=== PATIENT | female | born 1980 | race African-American/Black ===

== ENCOUNTER → 2016-09-29 | Outpatient (CLI) | payer MEDICAID ==
[~2016-09-29] MED LIST: CALNTAB; IBUP-232 PO; OXYC1TAB63 PO; PERI8.6T PO; SENN1TAB PO; TETA1INJ6 IM; TYLE325T PO; ZOFR4TAB PO; ZOFR4TAB3 SL
== END ==
LOC: HPND 09:54
PROVIDERS: ATTEND Family Medicine
DX: O09.522 Supervision of elderly multigravida, second trimester (principal); O26.842 Uterine size-date discrepancy, second trimester
CPT/HCPCS: 76811

== ENCOUNTER → 2016-11-03 | Outpatient (CLI) | payer MEDICAID ==
[~2016-11-03] MED LIST changes: -ZOFR4TAB PO
== END ==
LOC: HPND 13:04
PROVIDERS: ATTEND Family Medicine
DX: O36.5922 Maternal care for other known or suspected poor fetal growth, second trimester, fetus 2 (principal); O34.12 Maternal care for benign tumor of corpus uteri, second trimester; O09.522 Supervision of elderly multigravida, second trimester
CPT/HCPCS: 76816; 76818; 76820; 76821

== ENCOUNTER 2016-11-24 11:27 | Inpatient (IN) | payer MEDICAID ==
[~2016-11-24] VITALS: Ht 170.2 cm; Wt 105.2 kg
[~2016-11-24 11:27] MED LIST changes: -IBUP-232 PO; -OXYC1TAB63 PO; -SENN1TAB PO; -TETA1INJ6 IM
[2016-11-24] MEDS ORDERED: LACTATED RINGER'S 1000 ML INJ 1,000 ML IV PRN (11:42)
[2016-11-24] MEDS ORDERED: LIDOCAINE HCL 1% 50 ML VIAL I-DERMAL PRN (11:45)
[2016-11-24] MEDS ORDERED: OXYTOCIN 30 UNITS-500ML PREMIX 500 ML IV ONE (11:45)
[2016-11-24] MEDS ORDERED: MINERAL OIL 10 ML VIAL TOPICAL PRN (11:45)
[2016-11-24] MEDS ORDERED: LIDOCAINE HCL 1% 50 ML VIAL INFIL PRN (11:45)
[2016-11-24] MEDS ORDERED: SODIUM CHLORID 0.9% 500 ML INJ 500 ML IV PRN (11:45)
[2016-11-24] MEDS ORDERED: CITRIC ACID-SODIUM CITRATE LIQ 30 ML UDC PO SCH (11:45)
--- NOTE | 2016-11-24 11:52 | HHI.HP ---
HPI Chief Complaint sent from [facility] for IUGR and oligohydramnios Date Seen: Nov 24, 2016 Time Seen: 11:40 (Jw Orourke MD R2) Travel History International Travel<30 Days: No Contact w/Intl Traveler<30Days: No (Jw Orourke MD R2) History of Present Illness HPI 36 year old at 37/2 with EDC of December 13. She is a patient of Dr. Huggins. She was sent by [facility] to labor and delivery for induction of labor due to oligohydramnios and IUGR. OB ultrasound today showed BPP of 8/8 and JG of 6.0. Her JG on 11/17/16 was 9.6. She is doing daily kick counts with good movement. She has no headache, blurry vision, chest pain, shortness of breath, abdominal pain. She is experiencing no contractions. She has no bloody show. She has no loss of fluids. No vaginal bleeding. She started care with Dr. Huggins at 22 weeks gestation and has very limited labs, which we will order now. (Jw Orourke MD R2) History Past Medical History Narrative Medical None (Jw Orourke MD R2) Obstetric History Obstetric History at 37/2, EDC December 13 1st: at 41 weeks no complications 2nd: at 40 weeks without complications 3rd: Miscarriage early, unknown etiology 4th: at 40 weeks, no complications 5th: current , has IUGR and oligohydramnios. Poor care. ( Jw Orourke MD R2) Past Surgical History Narrative Surgical None (Jw Orourke MD) Family History Narrative Family History Mom: hypertension Dad: diabetes mellitus (Jw Orourke MD R2) Social History Narrative Social History Smokes 5 cigarettes a day, was 10 cigarettes earlier in No drugs or alcohol reported (Jw Orourke MD R2) Allergies-Medications (Allergen,Severity, Reaction): Coded Allergies: Darvocet-N 100 (Verified Allergy, Intermediate, Itching, 10/28/16) ITCHING Home Meds Active Scripts Ondansetron Odt (Zofran Odt)4 Mg Tab4 Mg SL Q8HR PRN (Nausea/Vomiting) #30 TAB Ref 0 Prov:Cari Keith MD R3 10/28/16 Reported Medications Vitamin (Calna)1 Tab Tab 09/03/16 Acetaminophen (Tylenol)325 Mg Xfc932 Mg PO Q6H PRN (PAIN SCALE 5 TO 10) Ref 0 09/03/16 Discontinued Scripts Sennosides-Docusate Sodium (Yessenia-Colace)8.6-50 Mg Tab1 Tab PO BID PRN ( Constipation) #60 TAB Ref 0 Prov:Addy Huggins MD R1 10/02/16 Review of Systems Except as stated in HPI: all other systems reviewed are Neg (Jw Orourke MD R2) Physical Exam Narrative GENERAL: Well-nourished, well-developed patient. SKIN: Warm and dry. HEAD: Normocephalic and atraumatic. EYES: No scleral icterus. No injection or drainage. ENT: No nasal drainage noted. Mucous membranes pink. Airway patent. NECK: Supple, trachea midline. No JVD. CARDIOVASCULAR: Regular rate and rhythm without murmurs, gallops, or rubs. RESPIRATORY: Breath sounds equal bilaterally. No accessory muscle use. ABDOMEN/GI: Abdomen soft, non-tender, bowel sounds present, no rebound, no guarding Gravid to 37 weeks size GENITOURINARY: External Genitalia: intact and normal in appearance Dilatation: 0-1 Effacement: 50% Station: -3 Presentation: vertex Membranes: intact Uterine Contractions: none FHT's: Category: 1 Baseline: 140's Reactive: yes Variability: moderate Decels: none EXTREMITIES: No cyanosis or edema. BACK: Nontender without obvious deformity. No CVA tenderness. NEUROLOGICAL: Awake and alert. (Jw Orourke MD R2) Data Data Vital Signs Reviewed: Yes Orders Admit To Inpatient (11/24/16 ) Code Status (11/24/16 11:42) Vital Signs (Adult) .Per protocol (11/24/16 11:42) Activity Oob Ad Trudy (11/24/16 11:42) ^ Heart (11/24/16 11:42) ^ Amnioinfusion (11/24/16 11:42) Urinary Catheter Management .ONCE (11/24/16 11:42) Lactated Ringer's 1000 Ml Inj (Lr 1000 M (11/24/16 11:42) Lactated Ringer's 1000 Ml Inj (Lr 1000 M (11/24/16 11:42) Sodium Chlorid 0.9% 500 Ml Inj (Ns 500 M (11/24/16 11:45) Sodium Chlor 0.9% 1000 Ml Inj (Ns 1000 M (11/24/16 12:02) Lidocaine 1% Inj (50 Ml) (Xylocaine 1% I (11/24/16 11:45) Citric Acid-Sodium Citrate Liq (Bicitra (11/24/16 11:45) Fentanyl Inj (Fentanyl Inj) (11/24/16 11:45) Fentanyl Inj (Fentanyl Inj) (11/24/16 11:45) Complete Blood Count With Diff (11/24/16 11:42) Hold Clot (11/24/16 11:42) Abo/Rh Blood Type (11/24/16 11:42) Urinalysis - C+S If Indicated (11/24/16 11:42) Resp Oxygen Non Rebreathe Mask (11/24/16 ) ^ Epidural / Intrathecal Infus (11/24/16 11:42) Oxytocin 30 Units-500ml Premix (Pitocin (11/24/16 11:45) Lidocaine 1% Inj (50 Ml) (Xylocaine 1% I (11/24/16 11:45) Light Mineral Oil (Muri-Lube Oil) (11/24/16 11:45) Inpatient Certification (11/24/16 ) Specimen To Be Collected PRN (11/24/16 11:42) (Jw Orourke MD R2) Assessment/Plan Problem List: (1) Oligohydramnios Plan: JG today is 6.0, was 9.1 a couple weeks ago. - Induce labor today (past 37 weeks). (2) IUGR (intrauterine growth retardation) affecting mother Plan: Asymmetric IUGR, preserved head size, normal doppler studies. EFW <10th percentile. (3) Late care affecting Plan: Received care starting at about 22 weeks gestation. Did not get labs done. - labs ordered. - Will get GBS screen - Drug screen (4) Cigarette nicotine dependence Plan: Smokes 5 cigarettes per day, 10 cigarettes earlier in (5) Medical non-compliance Plan: Received care starting at 22 weeks, did not get labs done. - labs ordered - CMP, check glucose, liver enzymes - A1C if glucose elevated - GC/chlamydia to be repeated, last done in August and normal - GBS to be done now (6) induction of labor Plan: Indication is oligohydramnios after 37 weeks. Cervix non-favorable. - Proceed with Cytotec 25 mcg per vagina every 4 to 6 hours, hold for tachysystole or non-assuring strip. - Continue EFM - Monitor progression of labor. Assessment and Plan 36 year old at 37/2 with oligohydramnios (JG 6.0), weight below 10th percentile, poor care, cigarette dependence, here for labor induction. Seen and discussed with Dr. Smart and Dr. Terese Salas (Jw Orourke MD R2) Attending Attestation Patient seen and discussed with Drs. Orourke and Josue . H&P reviewed and corroborated with patient at bedside. I HAVE REVIEWED THE RECORD AND AGREE WITH THE ABOVE NOTE AND PLAN OF CARE WAS DISCUSSED. I HAVE AUTHORIZED THE ORDER FOR ADMISSION TO AN IN-PATIENT STATUS. (Ivy Smart MD) Jw Orourke MD R2 Nov 24, 2016 11:52 Ivy Smart MD Nov 24, 2016 13:52
[2016-11-24] MEDS ORDERED: SODIUM CHLOR 0.9% 1000 ML INJ 1,000 ML IV PRN (12:00)
[2016-11-24 12:22] VITALS: BP 110/81; PULSE 79
[2016-11-24 12:30] VITALS: RESP 16; TEMP 98.4
[2016-11-24] MEDS ORDERED: SODIUM CHLOR 0.9% 1000 ML INJ 1,000 ML OTHER PRN (12:35)
[2016-11-24] MEDS ORDERED: MISOPROSTOL 25 MCG SUPP VAGINAL ONE (12:45)
[2016-11-24] MEDS ORDERED: SODIUM CHLORIDE 0.9% FLUSH 5 ML FLUSH IV FLUSH PRN (12:45)
[2016-11-24 13:35] LABS: BASOPHIL % 0.1 % (0.0-2.0); EOSINOPHIL # 0.1 TH/MM3 (0-0.4); EOSINOPHIL % 0.7 % (0.0-4.0); HEMATOCRIT 34.9 % (35.0-46.0); HEMO FLAGS DIFF FINAL; LYMPH % 17.4 % (9.0-44.0); LYMPHOCYTE # 1.4 TH/MM3 (1.0-4.8); MEAN CELL VOLUME 90.7 FL (80.0-100.0); MEAN CORPUSCULAR HEMOGLOBIN 31.7 PG (27.0-34.0); MONO % 6.1 % (0.0-8.0); NEUT % 75.7 % (16.0-70.0); PLATELET COUNT 177 TH/MM3 (150-450); RED BLOOD COUNT 3.85 MIL/MM3 (4.00-5.30); RED CELL DISTRIBUTION WIDTH 13.2 % (11.6-17.2); WHITE BLOOD COUNT 7.9 TH/MM3 (4.0-11.0)
[2016-11-24 13:44] LABS: AMPHETAMINE, URINE NEG (NEG); BARBITURATES, URINE NEG (NEG); COCAINE, URINE NEG (NEG)
[2016-11-24] MEDS: LACTATED RINGER'S 1000 ML INJ 1,000 ML IV SCH ×2 (13:46→20:00)
[2016-11-24 13:59] LABS: BLOOD, URINE NEG (NEG); COMMENT (UR) CULT NOT INDICATED; CULTURE IF INDICATED CULT NOT INDICATED; GLUCOSE,URINE NEG (NEG); KETONE, URINE NEG (NEG); MUCUS URINE FEW /lpf (OCC); NITRITE,URINE NEG (NEG); PH, URINE 6.5 (5.0-8.5); SQUAMOUS EPITHELIAL CELL URINE 3 /hpf (0-5); URINE COLOR LIGHT-YELLOW (YELLW/STRAW)
[2016-11-24 14:09] LABS: RUBELLA IGG ANTIBODY 52.9 IU/mL (10.0-500.0); RUBELLA STATUS IMMUNE (IMMUNE)
[2016-11-24 14:39] VITALS: BP 100/58; PULSE 104
[2016-11-24 15:45] LABS: CHLAMYDIA PCR NOT DETECTED (NOT DETECT); NEISSERIA PCR NOT DETECTED (NOT DETECT)
--- NOTE | 2016-11-24 16:02 | PD.LABORPN ---
Subjective Subjective Resting in bed. She has eaten a meal. Has good movements. No contractions felt. (Jw Orourke MD R2) Objective Vital Signs Vital Signs Date Time Temp Pulse Resp B/P Pulse Ox O2 Delivery O2 Flow Rate FiO2 11/24/16 14:39 104 100/58 11/24/16 12:30 98.4 16 11/24/16 12:22 79 110/81 Objective Pelvic Exam: Will repeat at 5 PM FHT's: Category: 1 Baseline: 140's Reactive: yes Variability: moderate Decels: none (Jw Orourke MD R2) Assessment/Plan Assessment and Plan 36 year old at 37/2 with oligohydramnios (JG 6.0), weight below 10th percentile, poor care, cigarette dependence, here for labor induction. - First dose of Cytotec 25 mcg per vagina inserted at 1 PM. Will recheck cervix at 5 PM, and likely will need another dose of Cytotec. - Continue monitoring - No pain currently, monitor. - Labs pending, to be followed. - GBS positive, start penicillin prophylaxis Updated Dr. Huggins, her OB provider (Jw Orourke MD R2) Problem List: (1) Oligohydramnios Plan: JG today is 6.0, was 9.1 a couple weeks ago. - Induce labor today (past 37 weeks). (2) IUGR (intrauterine growth retardation) affecting mother (3) Late care affecting (4) Medical non-compliance (5) induction of labor (6) BMI 36.0-36.9,adult (7) Cigarette nicotine dependence (8) GBS carrier (9) HPV (human papilloma virus) infection (10) Hepatitis C antibody positive in blood Assessment and Plan Patient seen and discussed with Drs. Orourke and Josue . Currently Cat I strip, HR 140. No significant contx on toco or clinically. Labs significant for GBS +, Hep C +, CMP pending (will check LFTs), of note, pap cytology wnl but noted for HR HPV+. No vulvovag lesions identified on intake exam. Pt to be informed of results and implications at this time. Will rx w/ PCN once in labor or at time of ROM, whichever is first. I HAVE REVIEWED THE RECORD AND otherwise AGREE WITH THE ABOVE NOTE AND PLAN OF CARE WAS DISCUSSED. Dr Monk (OBH) covering as attending overnight. Dr Frazier (chronic condition nurse Sr resident) and Joseluis (Pt' s PCP) assuming care from resident OB team at this time. (Ivy Smart MD) Jw Orourke MD R2 Nov 24, 2016 16:02 Ivy Smart MD Nov 24, 2016 17:07
[2016-11-24] MEDS ORDERED: PENICILLIN G POTASSIUM INJ 5,000,000 UNITS in SODIUM CHLORIDE 0.9% INJ 100 ML IV ONE (16:30)
[2016-11-24 17:27] LABS: ALT (GPT) 20 U/L (10-53); ANION GAP 15 MEQ/L (5-15); AST (GOT) 16 U/L (15-37); BICARBONATE 20.2 MEQ/L (21.0-32.0); BLOOD UREA NITROGEN 7 MG/DL (7-18); CHLORIDE 105 MEQ/L (98-107); GLOMERULAR FILTRATION RATE 117 ML/MIN (>89); POTASSIUM 3.8 MEQ/L (3.5-5.1); SODIUM (NA) 140 MEQ/L (136-145)
[2016-11-24 17:29] LABS: ALKALINE PHOSPHATASE 155 U/L (45-117); TOTAL BILIRUBIN ADULT 0.3 MG/DL (0.2-1.0)
[2016-11-24] MEDS: MISOPROSTOL 25 MCG SUPP VAGINAL PRN ×2 (17:40→21:30)
[2016-11-24] MEDS ORDERED: SODIUM CHLORIDE 0.9% FLUSH 5 ML FLUSH IV FLUSH SCH (21:00)
[2016-11-24] MEDS ORDERED: PENICILLIN G POTASSIUM INJ 2,500,000 UNITS in SODIUM CHLORIDE 0.9% INJ 100 ML IV SCH (21:00)
--- NOTE | 2016-11-24 22:31 | PD.LABORPN ---
Subjective Subjective Patient is doing well no complaints at this time. Understands again plan is to continue the Cervidil. Has had no change since first round of Cervidil. Objective Vital Signs Vital Signs Date Time Temp Pulse Resp B/P Pulse Ox O2 Delivery O2 Flow Rate FiO2 11/24/16 14:39 104 100/58 Objective Pelvic Exam: Dilatation: 0-1 Effacement: 0% Station: -3 Presentation: vertex Membranes: Intact Uterine Contractions: None FHT's: Category: 1 Baseline: 140 Reactive: Up to 155 Variability: Moderate Decels: None Assessment/Plan Problem List: (1) Oligohydramnios (2) IUGR (intrauterine growth retardation) affecting mother (3) Late care affecting (4) Medical non-compliance (5) induction of labor (6) BMI 36.0-36.9,adult (7) Cigarette nicotine dependence (8) GBS carrier (9) HPV (human papilloma virus) infection (10) Hepatitis C antibody positive in blood Assessment and Plan 36 year old at 37/2 with oligohydramnios (JG 6.0), weight below 10th percentile, poor care, cigarette dependence, here for labor induction. 1. Intrauterine , oligohydramnios, GBS positive -Cervical ripening with Cytotec per protocol - Continue monitoring - No pain currently, monitor. - GBS positive, will start penicillin prophylaxis once active labor begins Kody Frazier MD R2 Nov 24, 2016 22:31
[2016-11-25] VITALS (12 sets, daily range): BP systolic 99–107; BP diastolic 55–76; PULSE 62–88; RESP 16–20; TEMP 96.5–97.5; O2SAT 94–96
--- NOTE | 2016-11-25 02:29 | PD.LABORPN ---
Subjective Subjective Ready for baby to be delivered. No other complaints. Expressed understanding to use agent to Cervidil to as a cervical ripening agent prior to delivery. Objective Vital Signs Reviewed in OB trace. Afebrile. Respiratory Rate: 18. Blood pressure: 110/60. Pulse 80. Objective Pelvic Exam: Cervix: Soft, posterior Dilatation: 0-1cm Effacement: 50 Station: -3 Membranes: intact Uterine Contractions: uterine irritability, no regular contractions FHT's: Category: 1 Baseline: 145 Reactive: Yes Variability: Moderate Decels: No Assessment/Plan Problem List: (1) Oligohydramnios (2) IUGR (intrauterine growth retardation) affecting mother (3) Late care affecting (4) Medical non-compliance (5) induction of labor (6) BMI 36.0-36.9,adult (7) Cigarette nicotine dependence (8) GBS carrier (9) HPV (human papilloma virus) infection (10) Hepatitis C antibody positive in blood Assessment and Plan 36 year-old at 37/2 with oligohydramnios (JG 6.0), weight below 10th percentile, poor care, cigarette dependence, here for labor induction. Continuity patient of Dr. Addy Huggins. 1. Intrauterine , oligohydramnios, GBS positive - Cervical ripening with Cytotec per protocol- dose administered at 2am - Continue monitoring - No pain currently, monitor. Pt would like epidural, when appropriate - GBS positive, will start penicillin prophylaxis once active labor begins DW: Evy Castano MD R1 Nov 25, 2016 02:29
[2016-11-25] MEDS: LACTATED RINGER'S 1000 ML INJ 1,000 ML IV SCH (06:04)
[2016-11-25] MEDS ORDERED: OXYTOCIN 30 UNITS-500ML PREMIX 500 ML IV SCH (09:45)
--- NOTE | 2016-11-25 09:47 | PD.LABORPN ---
Subjective Subjective Patient has completed a BPP 03/04 with JG 5.7. Cervical exam has not changed since admission around 12 noon yesterday, still fingertip, 50%, -3, posterior, with soft to medium consistency cervix. She is not basil. She is status post Cytotec 4 without cervical change. MFM have been following mother for lower limits of normal JG, which was 6.0 yesterday and 5.7 today. care was poor and labs order yesterday so far shows she is hep C positive and GBS positive. She elects to proceed with vaginal delivery today, therefore, we will proceed with starting gentle Pitocin at 09/27/29 with close monitoring of mother-baby. We will stop Pitocin if there are more than 4 contractions in 10 minute period of time. Patient does require PCN IV to be started once she is basil due to GBS positive status. Patient is agreeable with this plan of care. She was discussed with Dr. Monk and Dr. Addy Huggins (she is a [facility] patient). Objective Objective Pelvic Exam: Cervix soft medium, posterior, high Dilatation:0-1 Effacement:50 Station: -3 Presentation: vertex Membranes: Intact Uterine Contractions: Absent FHT's: Category: 1 Baseline: 135 Reactive:y Variability: Mod Decels: Absent Assessment/Plan Problem List: (1) Oligohydramnios (2) IUGR (intrauterine growth retardation) affecting mother (3) Late care affecting (4) Medical non-compliance (5) induction of labor (6) BMI 36.0-36.9,adult (7) Cigarette nicotine dependence (8) GBS carrier (9) HPV (human papilloma virus) infection (10) Hepatitis C antibody positive in blood Assessment and Plan 36 year-old at 37/3 with oligohydramnios (JG 6.0 yesterday, today 5.7), IUGR/ weight below 10th percentile, poor care, cigarette dependence, here for labor induction. Continuity patient of Dr. Addy Huggins. Intrauterine : - Cervical ripening with Cytotec per protocol 4, no cervical change - We'll start Pitocin at 09/27/29 slowly, monitoring fetus and mother closely - Continue monitoring - No pain currently, monitor. - Pt would like epidural, when appropriate - Category 1 tracing - Patient desires vaginal delivery - Intact membranes - CBC essentially unremarkable. H/H 12/35 - U/A unremarkable - IV fluids - Monitor heart tones - Routine care - labs ordered and unremarkable aside from hep C positive, HPV positive , and RPR still pending Oligohydramnios: - JG of 5.7 on 11/25 by ultrasound, monitor GBS positive: - Start penicillin prophylaxis IV per protocol once active labor begins BOBW Dr. Monk, Terese Lira MD R1 Nov 25, 2016 09:46
[2016-11-25 10:57] LABS: RAPID PLASMA REAGIN SCREEN NON-REACTIVE (NON-REACTVE)
[2016-11-25] MEDS ORDERED: PENICILLIN G POTASSIUM INJ 5,000,000 UNITS in SODIUM CHLORIDE 0.9% INJ 100 ML IV ONE (13:00)
[2016-11-25] MEDS ORDERED: LACTATED RINGER'S 1000 ML INJ 1,000 ML IV ONE (13:13)
[2016-11-25] MEDS ORDERED: OXYTOCIN 10 UNIT/ML AMP ONE (13:40)
--- NOTE | 2016-11-25 13:42 | PD.LABORPN ---
Subjective Subjective Patient seen and evaluated by medical team. Patient opted for a trial of induction with Pitocin earlier this morning after US showed JG of 5.7cm and no progression after Cytotec x4. Pitocin was started and titrated up to 3 mU/min without contractions. She then proceeded to have late variables on monitoring. The Pitocin was stopped at that time. OB team discussed risks of continued induction vs. . The patient requested . Plans made for due to failed induction with IUGR and oligohydramnios. Objective Vital Signs Vital Signs Date Time Temp Pulse Resp B/P Pulse Ox O2 Delivery O2 Flow Rate FiO2 11/25/16 12:44 18 11/25/16 12:38 86 104/69 11/25/16 11:38 18 11/25/16 11:30 81 102/55 11/25/16 11:00 16 11/25/16 10:59 87 99/64 Objective Pelvic Exam: Cervix: Midposition Dilatation: Fingertip Effacement: 50% Station: -3 Membranes: Intact Uterine Contractions: None FHT's: Category: 2 Baseline: 158 Reactive: + Variability: Moderate Decels: Late variable decelerations Assessment/Plan Problem List: (1) Oligohydramnios (2) IUGR (intrauterine growth retardation) affecting mother (3) Late care affecting (4) Medical non-compliance (5) induction of labor (6) BMI 36.0-36.9,adult (7) Cigarette nicotine dependence (8) GBS carrier (9) HPV (human papilloma virus) infection (10) Hepatitis C antibody positive in blood Assessment and Plan Mrs. Holguin is a 36 y/o presenting at 37/3 with oligohydramnios, IGUR, poor care, and cigarette dependence admitted for induction. -Category 2 tracing with late variable decelerations after induction with Pitocin -OB team will proceed with C section due to failed induction, oligohydramnios, IUGR, and per patient request. - procedure and all risks associated were thoroughly explained to the patient who voiced verbal acknowledgement. -All orders have been placed. SDW: Addy Barillas MD R1 Nov 25, 2016 13:42
[2016-11-25] MEDS ORDERED: DEXAMETHASONE SOD PHOS 4 MG/ML VIAL IV ONE (14:00)
[2016-11-25] MEDS ORDERED: LACTATED RINGER'S 1,000 ML BAG IV ONE (14:00)
[2016-11-25] MEDS ORDERED: ceFAZolin 2 GM PREMIX 50 ML IV SCH (14:15)
[2016-11-25] MEDS ORDERED: CITRIC ACID-SODIUM CITRATE LIQ 30 ML UDC PO SCH (14:45)
[2016-11-25] MEDS ORDERED: ONDANSETRON HCL 4 MG/2 ML VIAL IV PUSH PRN (15:00)
[2016-11-25] MEDS: SODIUM CHLORIDE 0.9% FLUSH 5 ML FLUSH IV SCH (15:00)
[2016-11-25] MEDS ORDERED: OXYTOCIN 30 UNITS-500ML PREMIX 500 ML IV ONE (15:00)
[2016-11-25] MEDS ORDERED: ACETAMINOPHEN 325 MG TAB PO PRN (15:00)
[2016-11-25] MEDS ORDERED: SODIUM CHLORIDE 0.9% FLUSH 5 ML FLUSH IV PRN (15:00)
[2016-11-25] MEDS ORDERED: MORPHINE SULFATE PF 5 MG/10 ML VIAL ONE (15:24)
[2016-11-25] MEDS ORDERED: ONDANSETRON HCL 4 MG/2 ML VIAL ONE (15:25)
--- NOTE | 2016-11-25 15:31 | PD.OP ---
Operative Report Date of Surgery: Nov 25, 2016 Preoperative Diagnosis: Intrauterine at 37 weeks IUGR Oligohydramnios Fibroid uterus Group B strep positive Postoperative Diagnosis: Same Procedure: Primary low segment transverse section Anesthesia: Spinal Surgeon: Socorro Omer Ram Car Operator(s): Or staff Dr. Addy Huggins Resident Surgeon: Dr. Addy Huggins Operation and Findings: Anesthesiologist:: (Dr. Minor ) Estimated blood loss: ( 600 cc) Sponge and instrument count: ( Correct) Drains: ( None) Complications: (None ) Indications for procedure: (Failed induction, oligohydramnios, IUGR, fibroid uterus, advanced maternal age ) Findings: (Viable male infant weight 20/2/50 grams Apgars of 9 at 1 minute 9 at 5 minutes large 5-6 cm fibroid on the left lateral aspect posteriorly of the uterus near the lower uterine segment vertex asynclitic ) Timeout done The patient was taken to the operating room after appropriate levels of spinal anesthesia were achieved she was placed in the supine position. A Veras catheter was inserted under sterile conditions and draining adequate clear urine. Intermittent compression hoses were placed and functioning. Bovie pad was placed and grounded. The abdomen was shaved prepped and draped in the usual sterile fashion. A transverse Pfannenstiel incision was made carried down through the skin subcutaneous tissue. The fascia was opened transversely. from the muscles in the midline. The rectus muscles were . Peritoneal cavity opened and the abdominal cavity entered. As the patient was 37 weeks there was no development of the lower uterine segment. A transverse incision was made as low as possible no bladder flap was created The fluid was (clear ). The was vertex/asynclitic The vertex was delivered nose and mouth suctioned well the remainder of the body was then delivered. Cord doubly clamped and cut and cord blood was obtained as well as a segment of cord for cord pH and the infant handed over to the awaiting nursing staff. The placenta spontaneously delivered intact with fundal massage. The uterus was then exteriorized cleaned of excessive blood and debris. The incision was then closed with 0 chromic in a continuous interlocking stitch. The stitch line was imbricated also using 0 chromic. No active bleeding. Tubes and ovaries were inspected and found to be normal. The abdominal cavity was then irrigated. The uterus placed back into the abdomen. Paracolic gutters cleaned of excessive blood and debris. Interceed was then placed over the incision and the anterior surface of the uterus in an inverted T. points of bleeding were controlled with figure-of- eight aerostat placed over the incision The peritoneum was then closed with 2-0 Vicryl. The muscles reapproximated. Inspection of the muscle bed demonstrated no bleeding. The fascia was then closed with 0 Vicryl in a continuous stitch. The subcutaneous tissue was irrigated bleeders controlled with Bovie. Hermilo's fascia closed with 2-0 Vicryl. The skin was closed using (3-0 Monocryl on a Manpreet needle ). The uterus was massaged clearing blood and clots. The patient was cleaned. Pressure dressing and abdominal binder placed. Patient then transferred to the recovery room in stable condition, where her vital signs are ( stable). Urine is clear and adequate. Baby transferred to the nursery in stable condition. Socorro Wooten MD Nov 25, 2016 15:31
[2016-11-25] MEDS ORDERED: ACETAMINOPHEN 1000 MG/100 ML VIAL IV ONE ×2 (15:52→16:00)
[2016-11-25] MEDS ORDERED: EPIDURAL-DIPHENHYDRAMINE HCL 50 MG/ML VIAL IV PUSH PRN (17:00)
[2016-11-25] MEDS ORDERED: EPIDURAL-DO NOT ADMINISTER ANTICOAGULANTS XX PRN (17:00)
[2016-11-25] MEDS ORDERED: EPIDURAL-NALOXONE HCL 0.4 MG/ML AMP IV PRN (17:00)
[2016-11-25] MEDS ORDERED: EPIDURAL-DIPHENHYDRAMINE HCL 50 MG CAP PO PRN (17:00)
[2016-11-25] MEDS ORDERED: EPIDURAL-NO SYSTEMIC NARCOTICS XX PRN (17:00)
[2016-11-25] MEDS ORDERED: PENICILLIN G POTASSIUM INJ 2,500,000 UNITS in SODIUM CHLORIDE 0.9% INJ 100 ML IV SCH (17:00)
[2016-11-25] MEDS ORDERED: LACTATED RINGER'S 1000 ML INJ 1,000 ML IV SCH (19:50)
[2016-11-25] MEDS: DOCUSATE SODIUM 50 MG/SENNA 8.6 MG TAB PO PRN (22:55)
[2016-11-25] MEDS: oxyCODONE/ACETAMINOPHEN 5 MG/325 MG TAB PO PRN (22:56)
[2016-11-26] VITALS: BP 106/59; PULSE 61; RESP 16; TEMP 97.9
[2016-11-26] MEDS ORDERED: OXYTOCIN 30 UNITS-500ML PREMIX 500 ML IV PRN (01:00)
[2016-11-26] MEDS: IBUPROFEN 600 MG TAB PO PRN ×4 (03:17→23:12)
[2016-11-26] MEDS: oxyCODONE/ACETAMINOPHEN 5 MG/325 MG TAB PO PRN ×4 (03:17→23:13)
[2016-11-26 04:00] VITALS: BP 122/80; PULSE 70; RESP 16; TEMP 97.5; O2SAT 97
[2016-11-26 06:04] LABS: AUTOMATED NEUTROPHIL # 11.1 TH/MM3 (1.8-7.7); BASOPHIL % 0.1 % (0.0-2.0); EOSINOPHIL % 0.2 % (0.0-4.0); HEMATOCRIT 33.8 % (35.0-46.0); HEMO FLAGS DIFF FINAL; LYMPH % 10.5 % (9.0-44.0); LYMPHOCYTE # 1.4 TH/MM3 (1.0-4.8); MEAN CELL VOLUME 91.9 FL (80.0-100.0); MEAN CORPUSCULAR HEMOGLOBIN 31.5 PG (27.0-34.0); MEAN CORPUSCULAR HGB CONC 34.3 % (32.0-36.0); MONO % 5.7 % (0.0-8.0); NEUT % 83.5 % (16.0-70.0); PLATELET COUNT 169 TH/MM3 (150-450); RED BLOOD COUNT 3.68 MIL/MM3 (4.00-5.30); RED CELL DISTRIBUTION WIDTH 13.3 % (11.6-17.2); WHITE BLOOD COUNT 13.3 TH/MM3 (4.0-11.0)
[2016-11-26] MEDS: SODIUM CHLORIDE 0.9% FLUSH 5 ML FLUSH IV SCH ×2 (08:12→20:58)
--- NOTE | 2016-11-26 08:13 | HHI.OB ---
Subjective Post Operative Day: 1 Remarks Pt seen and examined this morning. Post operative day #1 AFVSS overnight. Incision not draining. Decreased lochia. Denies dysuria. No breast tenderness. She is feeding the baby via breast and bottle. Appetite good. No nausea or vomiting. Patient has not yet had a bowel movement, but is passing gas. Ambulating well. Denies calf pain or shortness of breath. Otherwise, she is doing well this morning and has no other concerns. Objective Vitals/I&O Vital Signs Date Time Temp Pulse Resp B/P Pulse Ox O2 Delivery O2 Flow Rate FiO2 11/26/16 04:00 97.5 70 16 122/80 97 11/26/16 00:00 97.9 61 16 106/59 11/25/16 20:00 97.4 71 16 101/59 11/25/16 17:15 18 11/25/16 17:00 62 20 106/74 11/25/16 15:30 88 18 107/56 96 11/25/16 15:30 97.5 11/25/16 15:15 81 18 105/65 11/25/16 15:15 96.5 94 11/25/16 13:00 79 107/76 11/25/16 12:44 18 11/25/16 12:38 86 104/69 11/25/16 11:38 18 11/25/16 11:30 81 102/55 11/25/16 11:00 16 11/25/16 10:59 87 99/64 Result Diagram: 11/26/16 0531 11/24/16 1713 Objective Remarks GENERAL: Well-nourished, well-developed patient. CARDIOVASCULAR: Regular rate and rhythm without murmurs, gallops, or rubs. RESPIRATORY: Breath sounds equal bilaterally. No accessory muscle use. ABDOMEN/GI: Abdomen soft, non-tender, bowel sounds present. Incision: Clean, dry and intact. Fundus: Firm, non-tender at umbilicus. GENITOURINARY: Light to moderate bleeding. EXTREMITIES: No cyanosis or edema, non-tender, without signs of DVT. Medications and IVs Current Medications Medications (Trade) Dose Ordered Sig/Juan Jose Route Start Time Stop Time Status Last Admin Lactated Ringer's 1,000 ml @ 125 mls/hr Q8H IV 11/24/16 12:00 11/25/16 06:04 Lactated Ringer's 1,000 ml @ 3,000 mls/hr Q20M PRN IV 11/24/16 11:42 (NS 1000 ml Inj) 1,000 ml @ 100 mls/hr Q10H PRN IV 11/24/16 12:00 (fentaNYL INJ) 50 mcg Q1H PRN IV PUSH 11/24/16 11:45 (fentaNYL INJ) 100 mcg Q1H PRN IV PUSH 11/24/16 11:45 Mineral Oil 10 ml 10 ml UNSCH PRN TOPICAL 11/24/16 11:45 Oxytocin 500 ml @ 0 mls/hr TITRATE IV 11/25/16 09:45 11/25/16 10:56 Lactated Ringer's 1,000 ml @ 150 mls/hr Q6H40M IV 11/25/16 13:43 (Lr 1000 ml Inj) 1,000 ml @ 100 mls/hr Q10H IV 11/25/16 19:50 11/26/16 15:49 (NS Flush) 2 ml BID IV 11/25/16 15:00 (NS Flush) 2 ml UNSCH PRN IV 11/25/16 15:00 (Tylenol) 650 mg Q6H PRN PO 11/25/16 15:00 (Percocet 5-325 Mg) 1 tab Q4H PRN PO 11/25/16 15:00 11/26/16 03:17 (Percocet 5-325 Mg) 2 tab Q4H PRN PO 11/25/16 15:00 (Yessenia-Colace) 2 tab Q12HR PRN PO 11/25/16 15:00 11/25/16 22:55 (M-M-R Ii Inj) 0.5 ml ONCE ONCE SQ 11/26/16 16:00 11/26/16 16:01 (Boostrix Inj) 0.5 ml ONCE ONCE IM 11/26/16 16:00 11/26/16 16:01 (Zofran Inj) 4 mg Q6H PRN IV PUSH 11/25/16 15:00 Miscellaneous Information NO SYSTEMIC NARCOTICS TO BE GIVEN FO... UNSCH PRN XX 11/25/16 17:00 11/26/16 16:59 (Narcan Inj) 0.4 mg UNSCH PRN IV 11/25/16 17:00 3/2/17 16:59 (Benadryl Inj) 25 mg Q6H PRN IV PUSH 11/25/16 17:00 11/26/16 16:59 11/25/16 16:56 (Benadryl) 50 mg Q6H PRN PO 11/25/16 17:00 11/26/16 16:59 Miscellaneous Information ALL NURSING DEPARTMENTS UNSCH PRN XX 11/25/16 17:00 11/26/16 16:59 Ibuprofen 600 mg 600 mg Q6H PRN PO 11/26/16 02:45 11/26/16 03:17 (Ancef Inj/NS Inj) 100 ml @ 200 mls/hr Q8H IV 11/26/16 08:00 11/26/16 16:29 Assessment/Plan Problem List: (1) Oligohydramnios (2) IUGR (intrauterine growth retardation) affecting mother (3) Late care affecting (4) Medical non-compliance (5) induction of labor (6) BMI 36.0-36.9,adult (7) Cigarette nicotine dependence (8) GBS carrier (9) HPV (human papilloma virus) infection (10) Hepatitis C antibody positive in blood Assessment and Plan 36 year old at 37/2 with oligohydramnios, IUGR, poor care, and tobacco dependence who is POD#1 from due to failed induction per patient request. -Continue routine care. -Percocet and Motrin PRN pain. -Encouraged OOB. Advised pelvic rest for 6 wks. Will need a f/u appt. in 1-2 wks for incision check with me in clinic. -Re: ctrl, she would like discussed her options at the follow-up appointment. -Anticipate discharge in 1-2 days. DW: MD Joseluis Curtis,Addy Cruz MD R1 Nov 26, 2016 08:13
[2016-11-26] MEDS: LACTATED RINGER'S 1000 ML INJ 1,000 ML IV SCH ×5 (09:43→23:03)
[2016-11-26 10:00] VITALS: BP 104/64; PULSE 71; RESP 20; TEMP 97.5
[2016-11-26] MEDS: DOCUSATE SODIUM 50 MG/SENNA 8.6 MG TAB PO PRN ×2 (11:28→23:13)
[2016-11-26] MEDS ORDERED: MEASLES, MUMPS, RUBELLA VACCINE 0.5 ML VIAL SQ ONE (16:00)
[2016-11-26] MEDS ORDERED: DIPHTH/TETANUS/ACEL PERTUSSIS (BOOSTER) 0.5 ML VIAL/PFS IM ONE (16:00)
[2016-11-26 16:40] VITALS: BP 128/84; PULSE 66; RESP 18; TEMP 97.9
[2016-11-27] MEDS: LACTATED RINGER'S 1000 ML INJ 1,000 ML IV SCH ×4 (04:00→12:23)
[2016-11-27] MEDS: oxyCODONE/ACETAMINOPHEN 5 MG/325 MG TAB PO PRN ×3 (08:20→21:24)
[2016-11-27] MEDS: IBUPROFEN 600 MG TAB PO PRN ×3 (08:20→21:24)
--- NOTE | 2016-11-27 08:39 | HHI.OB ---
Subjective Post Operative Day: 2 Remarks Pt seen and examined this morning. Postoperative day #2 AFVSS overnight. Incision not draining. Decreased lochia. Denies dysuria. No breast tenderness. She is feeding the baby via breast and bottle. Appetite good. No nausea or vomiting. Patient has not yet had a bowel movement, but has passed gas. She states that this is her baseline. Ambulating well. Denies calf pain or shortness of breath. Otherwise, she is doing well this morning and has no other concerns. (Addy Huggins MD R1) Objective Vitals/I&O Vital Signs Date Time Temp Pulse Resp B/P Pulse Ox O2 Delivery O2 Flow Rate FiO2 11/26/16 16:40 97.9 66 18 128/84 11/26/16 10:00 97.5 71 20 104/64 (Addy Huggins MD R1) Result Diagram: 11/26/16 0531 11/24/16 1713 Objective Remarks GENERAL: Well-nourished, well-developed patient. CARDIOVASCULAR: Regular rate and rhythm without murmurs, gallops, or rubs. RESPIRATORY: Breath sounds equal bilaterally. No accessory muscle use. ABDOMEN/GI: Abdomen soft, non-tender, bowel sounds present. Incision: Clean, dry and intact. Fundus: Firm, non-tender at umbilicus. GENITOURINARY: Light to moderate bleeding. EXTREMITIES: No cyanosis or edema, non-tender, without signs of DVT. Medications and IVs Current Medications Medications (Trade) Dose Ordered Sig/Juan Jose Route Start Time Stop Time Status Last Admin Lactated Ringer's 1,000 ml @ 125 mls/hr Q8H IV 11/24/16 12:00 11/25/16 06:04 Lactated Ringer's 1,000 ml @ 3,000 mls/hr Q20M PRN IV 11/24/16 11:42 (NS 1000 ml Inj) 1,000 ml @ 100 mls/hr Q10H PRN IV 11/24/16 12:00 (fentaNYL INJ) 50 mcg Q1H PRN IV PUSH 11/24/16 11:45 (fentaNYL INJ) 100 mcg Q1H PRN IV PUSH 11/24/16 11:45 Mineral Oil 10 ml 10 ml UNSCH PRN TOPICAL 11/24/16 11:45 Oxytocin 500 ml @ 0 mls/hr TITRATE IV 11/25/16 09:45 11/25/16 10:56 (Lr 1000 ml Inj) 1,000 ml @ 150 mls/hr Q6H40M IV 11/25/16 13:43 (NS Flush) 2 ml BID IV 11/25/16 15:00 11/26/16 08:12 (NS Flush) 2 ml UNSCH PRN IV 11/25/16 15:00 (Tylenol) 650 mg Q6H PRN PO 11/25/16 15:00 (Percocet 5-325 Mg) 1 tab Q4H PRN PO 11/25/16 15:00 11/26/16 09:45 (Percocet 5-325 Mg) 2 tab Q4H PRN PO 11/25/16 15:00 11/27/16 08:20 (Yessenia-Colace) 2 tab Q12HR PRN PO 11/25/16 15:00 11/26/16 23:13 (Zofran Inj) 4 mg Q6H PRN IV PUSH 11/25/16 15:00 (Motrin) 600 mg Q6H PRN PO 11/26/16 02:45 11/27/16 08:20 (Addy Huggins MD R1) Assessment/Plan Problem List: (1) Oligohydramnios (2) IUGR (intrauterine growth retardation) affecting mother (3) Late care affecting (4) Medical non-compliance (5) induction of labor (6) BMI 36.0-36.9,adult (7) Cigarette nicotine dependence (8) GBS carrier (9) HPV (human papilloma virus) infection (10) Hepatitis C antibody positive in blood Assessment and Plan Ms. Holguin is a 36 year old oligohydramnios, IUGR, poor care, and tobacco dependence who is POD#2 from at 37/3 due to failed induction per patient request. -Continue routine care. -Incentive spirometer ordered -Percocet and Motrin PRN pain. -Encouraged OOB. Advised pelvic rest for 6 wks. Will need a f/u appt. in 1-2 wks for incision check with me in clinic. -Re: ctrl, she would like an IUD. -Anticipate discharge tomorrow. DW: Dr. Garcia Discharge Planning Likely tomorrow, 11/28/16 (Addy Huggins MD R1) Assessment and Plan Attending note: Patient seen and examined, discussed with Dr Huggins. I agree with assessment and management as documented and discussed with me. Anticipate discharge tomorrow. (Alley Garcia MD) Addy Huggins MD R1 Nov 27, 2016 08:39 Alley Garcia MD Nov 27, 2016 11:26
[2016-11-27] MEDS: SODIUM CHLORIDE 0.9% FLUSH 5 ML FLUSH IV SCH (09:00)
[2016-11-27 09:51] LABS: HCV RNA PCR IU/ML LESS THAN 15 IU/mL (()); HCV RNA PCR LOGIU/ML LESS THAN 1.18 (())
[2016-11-27 12:28] LABS: BATH SALTS (MDPV) UR NEG (NEG); ECSTASY (MDMA) UR NEG (NEG); HEROIN (6-ACETYLMORPHINE) UR NEG (NEG); K2 SPICE UR NEG (NEG); OBMETHADONE UR NEG (NEG); OXYCODONE (PERCODAN) NEG (NEG); PHENCYCLIDINE URINE NEG (NEG)
[2016-11-27] MEDS ORDERED: BISACODYL 10 MG SUPP PR PRN (15:15)
[2016-11-27 20:00] VITALS: BP 119/83; PULSE 80; RESP 18; TEMP 97.7
[2016-11-27 23:51] LABS: HEPATITIS C RNA GENOTYPE NOT DETECTED (())
[2016-11-28] MEDS: oxyCODONE/ACETAMINOPHEN 5 MG/325 MG TAB PO PRN (04:20)
[2016-11-28] MEDS: IBUPROFEN 600 MG TAB PO PRN ×2 (04:20→10:14)
[2016-11-28 08:00] VITALS: BP 117/63; PULSE 70; RESP 18; TEMP 97.6
--- NOTE | 2016-11-28 09:05 | HHI.OB ---
Subjective Post Operative Day: 3 Remarks Pt seen and examined this morning. Postoperative day # 3 AFVSS overnight. Incision not draining. Decreased lochia. Denies dysuria. No breast tenderness. She is feeding the baby via breast and bottle. Appetite good. No nausea or vomiting. Patient has not yet had a bowel movement. +flatus. Ambulating well. Denies calf pain or shortness of breath. Otherwise, she is doing well this morning and has no other concerns. Objective Vitals/I&O Vital Signs Date Time Temp Pulse Resp B/P Pulse Ox O2 Delivery O2 Flow Rate FiO2 11/27/16 20:00 80 18 119/83 11/27/16 20:00 97.7 Result Diagram: 11/26/16 0531 11/24/16 1713 Objective Remarks GENERAL: Well-nourished, well-developed patient. CARDIOVASCULAR: Regular rate and rhythm without murmurs, gallops, or rubs. RESPIRATORY: Breath sounds equal bilaterally. No accessory muscle use. ABDOMEN/GI: Abdomen soft, non-tender, bowel sounds present. Incision: Clean, dry and intact. Fundus: Firm, non-tender at umbilicus. GENITOURINARY: Light to moderate bleeding. EXTREMITIES: No cyanosis or edema, non-tender, without signs of DVT. Medications and IVs Current Medications Medications (Trade) Dose Ordered Sig/Juan Jose Route Start Time Stop Time Status Last Admin Lactated Ringer's 1,000 ml @ 125 mls/hr Q8H IV 11/24/16 12:00 11/25/16 06:04 Lactated Ringer's 1,000 ml @ 3,000 mls/hr Q20M PRN IV 11/24/16 11:42 (NS 1000 ml Inj) 1,000 ml @ 100 mls/hr Q10H PRN IV 11/24/16 12:00 (fentaNYL INJ) 50 mcg Q1H PRN IV PUSH 11/24/16 11:45 (fentaNYL INJ) 100 mcg Q1H PRN IV PUSH 11/24/16 11:45 Mineral Oil 10 ml 10 ml UNSCH PRN TOPICAL 11/24/16 11:45 Oxytocin 500 ml @ 0 mls/hr TITRATE IV 11/25/16 09:45 11/25/16 10:56 (Lr 1000 ml Inj) 1,000 ml @ 150 mls/hr Q6H40M IV 11/25/16 13:43 (NS Flush) 2 ml BID IV 11/25/16 15:00 11/26/16 08:12 (NS Flush) 2 ml UNSCH PRN IV 11/25/16 15:00 (Tylenol) 650 mg Q6H PRN PO 11/25/16 15:00 (Percocet 5-325 Mg) 1 tab Q4H PRN PO 11/25/16 15:00 11/26/16 09:45 (Percocet 5-325 Mg) 2 tab Q4H PRN PO 11/25/16 15:00 11/28/16 04:20 (Yessenia-Colace) 2 tab Q12HR PRN PO 11/25/16 15:00 11/26/16 23:13 (Zofran Inj) 4 mg Q6H PRN IV PUSH 11/25/16 15:00 (Motrin) 600 mg Q6H PRN PO 11/26/16 02:45 11/28/16 04:20 (Dulcolax Supp) 10 mg DAILY PRN IN 11/27/16 15:15 11/27/16 17:50 Assessment/Plan Problem List: (1) Oligohydramnios (2) IUGR (intrauterine growth retardation) affecting mother (3) Late care affecting (4) Medical non-compliance (5) induction of labor (6) BMI 36.0-36.9,adult (7) Cigarette nicotine dependence (8) GBS carrier (9) HPV (human papilloma virus) infection (10) Hepatitis C antibody positive in blood (11) delivery delivered Assessment and Plan 36 y/o female who is POD# 3 s/p CXN. -Continue routine care. -Percocet and Motrin PRN pain. -Encouraged OOB. Advised pelvic rest for 6 wks. Will need a f/u appt. in 1-2 wks for incision check.] -Re: ctrl, she would like to have the ParaGard IUD. She understands that this can be done after 6 weeks post . -Anticipate discharge later today. antonia Omer, MD Salas,Miguel ARELLANO R2 Nov 28, 2016 09:05
[2016-11-28] MEDS ORDERED: SENN1TAB PO (09:06)
[2016-11-28] MEDS ORDERED: IBUP-232 PO (09:06)
[2016-11-28] MEDS ORDERED: OXYC1TAB63 PO (09:06)
--- NOTE | 2016-11-28 09:07 | HHI.DCPOC ---
Discharge Care Plan Diagnosis: (1) IUGR (intrauterine growth retardation) affecting mother (2) Late care affecting (3) delivery delivered Report Symptoms to Your Doctor -Temperate above 100.5 degrees -Redness, of incision or excessive or foul smelling drainage -Unusual pain or calf pain -Increased vaginal bleeding -Painful or difficulty urinating -Feelings of extreme sadness or anxiety after 2 weeks Goals to Promote Your Health * To prevent worsening of your condition and complications * To maintain your health at the optimal level Directions to Meet Your Goals Take your medications as prescribed Follow your dietary instruction Follow activity as directed Ensure plenty of rest for recovery Drink fluids for hydration Keep your appointments as scheduled Take your immunizations and boosters as scheduled If your symptoms worsen call your PCP, if no PCP go to Urgent Care Center or Emergency Room Smoking is Dangerous to Your Health. Avoid second hand smoke Call the 24-hour crisis hotline for domestic abuse at Miguel Salas MD R2 Nov 28, 2016 09:07
[2016-12-10] MEDS ORDERED: TYLE325T PO (16:44)
[2016-12-10] MEDS ORDERED: SENN1TAB PO (16:44)
[2016-12-10] MEDS ORDERED: IBUP-232 PO (16:44)
== END 2016-11-28 10:58 | disposition home or self-care (01) | DRG 765 ==
LOC: H2EA 11:27 → H1EA 11-25 16:33
PROVIDERS: ADMIT Family Medicine; ATTEND Family Medicine
PROC: 3E0P7GC Introduction of Other Therapeutic Substance into Female Reproductive, Via Natural or Artificial Opening (ICD-10-PCS; 2016-11-24)
PROC: 10D00Z1 Extraction of Products of Conception, Low, Open Approach (ICD-10-PCS; principal; 2016-11-25)
PROC: 3E0P05Z Introduction of Adhesion Barrier into Female Reproductive, Open Approach (ICD-10-PCS; 2016-11-25)
DX: O41.03X0 Oligohydramnios, third trimester, not applicable or unspecified (principal); O98.42 Viral hepatitis complicating childbirth; O36.5930 Maternal care for other known or suspected poor fetal growth, third trimester, not applicable or unspecified; O99.334 Smoking (tobacco) complicating childbirth; F17.210 Nicotine dependence, cigarettes, uncomplicated; Z91.19 Patient's noncompliance with other medical treatment and regimen; Z3A.37 37 weeks gestation of pregnancy; B97.7 Papillomavirus as the cause of diseases classified elsewhere; O34.13 Maternal care for benign tumor of corpus uteri, third trimester; D25.9 Leiomyoma of uterus, unspecified; B19.20 Unspecified viral hepatitis C without hepatic coma; O99.824 Streptococcus B carrier state complicating childbirth; Z68.36 Body mass index [BMI] 36.0-36.9, adult; O61.9 Failed induction of labor, unspecified; O76 Abnormality in fetal heart rate and rhythm complicating labor and delivery; Z37.0 Single live birth; O09.523 Supervision of elderly multigravida, third trimester
CPT/HCPCS: 76816; 76818; 76819; 76820; 76821; 80053; 80074; 80307; 81001; 85025; 86592; 86703; 86762; 86850; 86900; 86901; 87150; 87491; 87522; 87591; 87902; C1765; G0481; J0131; J0690; J1100; J1200; J2274; J2405; J2590; J7120; Q0163

== ENCOUNTER 2017-04-23 21:31 | Emergency (ER) | payer MEDICAID ==
[~2017-04-23 21:31] MED LIST changes: +IBUP-232 PO; -PERI8.6T PO; +SENN1TAB PO
[2017-04-23 21:34] VITALS: BP 152/97; PULSE 90; RESP 16; TEMP 97.9; O2SAT 96
== END 2017-04-23 22:56 | disposition left against medical advice (07) ==
LOC: NED 21:31
DX: F99 Mental disorder, not otherwise specified (principal)
CPT/HCPCS: 99281

== ENCOUNTER 2017-05-03 16:02 | Emergency (ER) | payer MEDICAID ==
[~2017-05-03] VITALS: Ht 170.2 cm; Wt 96.0 kg
[2017-05-03 16:03] VITALS: BP 115/77; PULSE 54; RESP 20; TEMP 97.6; O2SAT 97
--- NOTE | 2017-05-03 16:36 | PD ---
Physical Exam Date Seen by Provider: May 03, 2017 Time Seen by Provider: 16:32 Narrative 36 y/o female here with reports of worsening Depression and requesting to be seen by psychiatrist. Patient is Post , but states she felt this way before . Baby is 5 months old Patient has no plan. Is on meds but feels they are not working. Data Data Last Documented VS Vital Signs Date Time Temp Pulse Resp B/P Pulse Ox O2 Delivery O2 Flow Rate FiO2 05/03/17 16:03 97.6 54 20 115/77 97 MDM Medical Record Reviewed: Yes Supervised Visit with MIGUEL: Yes Condition: Stable Jasvir Benton May 03, 2017 16:36
[2017-05-03 20:02] VITALS: BP 111/73; PULSE 84; RESP 16; TEMP 97.8; O2SAT 99
--- NOTE | 2017-05-03 20:18 | PD ---
HPI Chief Complaint: Depression Time Seen by Provider: 20:15 Travel History International Travel<30 days: No Contact w/Intl Traveler<30days: No Traveled to known affect area: No History of Present Illness HPI 36 YO F with PMH of depression presents to the ED for evaluation of "months" long history of depression, tearfulness, anhedonia. She states these symptoms are similar to a previous episode of depression 17 years ago. She states that she decided to seek treatment today after she became to feel apathetic toward caring for her baby. She denies suicidal or homicidal ideation. She denies somatic complaints. She seeks voluntary evaluation by the psychiatrist. PFSH Past Medical History Depression: Yes Diminished Hearing: No Medical other: Yes (Hypoglycemia) Musculoskeletal: Yes ([place]) Immunizations Current: Yes Tetanus Vaccination: < 5 Years Influenza Vaccination: No ?: Not : 5 Para: 4 Miscarriage: 1 : 1 Past Surgical History Surgical History: No Previous Surgery Section: Yes Social History Alcohol Use: Yes (3 beers socailly 3 times a week) Tobacco Use: Yes (4-5 daily) Substance Use: Yes (cocaine) Allergies-Medications (Allergen,Severity, Reaction): Coded Allergies: Darvocet-N 100 (Verified Allergy, Intermediate, Itching, 05/03/17) ITCHING Reported Meds & Prescriptions Reported Meds & Active Scripts Active No Active Prescriptions or Reported Medications Review of Systems Except as stated in HPI: all other systems reviewed are Neg Physical Exam Narrative GENERAL: Well-nourished, well-developed AA female in no acute distress. SKIN: Focused skin assessment warm/dry. HEAD: Normocephalic. EYES: No scleral icterus. No injection or drainage. NECK: Supple, trachea midline. No JVD or lymphadenopathy. CARDIOVASCULAR: Regular rate and rhythm without murmurs, gallops, or rubs. RESPIRATORY: Breath sounds equal bilaterally. No accessory muscle use. GASTROINTESTINAL: Abdomen soft, non-tender, nondistended. MUSCULOSKELETAL: No cyanosis, or edema. BACK: Nontender without obvious deformity. No CVA tenderness. Data Data Last Documented VS Vital Signs Date Time Temp Pulse Resp B/P Pulse Ox O2 Delivery O2 Flow Rate FiO2 05/03/17 20:02 97.8 84 16 111/73 99 Room Air MDM Medical Decision Making Medical Screen Exam Complete: Yes Emergency Medical Condition: Yes Differential Diagnosis depression versus anhedonia versus adjustment disorder versus other Narrative Course 36 YO F with PMH of depression presents to the ED for evaluation of "months" long history of depression, tearfulness, anhedonia. She states these symptoms are similar to a previous episode of depression 17 years ago. She states that she decided to seek treatment today after she became to feel apathetic toward caring for her baby. She denies suicidal or homicidal ideation. She denies somatic complaints. She seeks voluntary evaluation by the psychiatrist. Vitals reviewed. Physical exam is unremarkable. I explained to the patient that we would be happy to see her voluntarily, however the psychiatrist would not be available until 7 AM. The patient is very adamant that she is not suicidal or homicidal. Her partner is at bedside and will be with her and her 5 -month-old child overnight. The patient at this time opts to discontinue evaluation and either seek outpatient treatment or return to the ED in the morning with more convenient for her to be evaluated by the psychiatrist. She was provided with a list of outpatient resources. She is stable and discharged home. Diagnosis Primary Impression: Anhedonia Additional Impression: Depression (emotion) Qualified Code: F32.9 - Depression, unspecified depression type Referrals: Psychiatrist Patient Instructions: Depression (ED), General Instructions Additional Instructions: Follow-up with the psychiatrist as discussed. Return to the ED for any urgent or emergent medical condition. Scripts No Active Prescriptions or Reported Meds Disposition: 01 DISCHARGE HOME Condition: Stable Lelo Ontiveros May 03, 2017 20:18
--- NOTE | 2017-05-03 20:32 | PD ---
Data Data Last Documented VS Vital Signs Date Time Temp Pulse Resp B/P Pulse Ox O2 Delivery O2 Flow Rate FiO2 05/03/17 20:02 97.8 84 16 111/73 99 Room Air MDM Supervised Visit with MIGUEL: Yes Narrative Course The history, exam, and medical decision-making in the associated mid-level provider note were completed with my assistance. I reviewed and agree with the findings presented. I attest that I had a [id number] encounter with the patient on the same day, and personally performed and documented my assessment and findings in the medical record. *My assessment and Findings: So 36 year-old woman with increasing depression symptoms. She has a 5-month- old. She's had depression before. No SI no HI. She states that she believes she is to be put back on medicine like to talk to. She has not needed be admitted to the hospital. She is given a list of resources to follow up with the community was told if she has any worsening symptoms that she should absolutely return to the emergency department. Diagnosis Primary Impression: Anhedonia Additional Impression: Depression (emotion) Qualified Code: F32.9 - Depression, unspecified depression type Referrals: Psychiatrist Patient Instructions: General Instructions, Depression (ED) Additional Instruction: Follow-up with the psychiatrist as discussed. Return to the ED for any urgent or emergent medical condition. Scripts No Active Prescriptions or Reported Meds Disposition: 01 DISCHARGE HOME Condition: Stable Kodak Quan MD May 03, 2017 20:32
== END 2017-05-03 20:42 | disposition home or self-care (01) ==
LOC: NEPD 16:02
DX: R45.84 Anhedonia (principal); F32.9 Major depressive disorder, single episode, unspecified; Z72.0 Tobacco use; Z88.5 Allergy status to narcotic agent
CPT/HCPCS: 99283